=== PATIENT | male | born 1980 | race Caucasian/White ===

== ENCOUNTER 2017-09-10 13:18 | Day surgery (SDC) | payer OTHER ==
[~2017-09-10 13:18] MED LIST: DEXAMETHASONE 4 MG/ML 1 ML INJ; LIDOCAINE 2% (SDV) 5 ML INJ; ONDANSETRON 4 MG INJ
[2017-09-10] MEDS ORDERED: metroNIDAZOLE 500 MG/NS (PMX) 100 ML IVPB (14:00)
[2017-09-10] MEDS ORDERED: SOD CHLORIDE 0.9% 1,000 ML IV (14:00)
[2017-09-10] MEDS ORDERED: LACTATED RINGER'S 1,000 ML IV (14:00)
[2017-09-10] MEDS ORDERED: PROPOFOL 20 ML (15:12)
[2017-09-10] MEDS ORDERED: ROCURONIUM 50 MG INJ (15:14)
[2017-09-10] MEDS ORDERED: FENTAnyl 50 MCG/ML VIAL IV ×3 (15:30)
[2017-09-10] MEDS ORDERED: DIPHENHYDRAMINE 50 MG INJ IV (15:30)
[2017-09-10] MEDS ORDERED: hydrALAzine 20 MG INJ IV (15:30)
[2017-09-10] MEDS ORDERED: HYDROmorphONE (0.2 MG/ML) 10ML SYG IV ×2 (15:30)
[2017-09-10] MEDS ORDERED: OXYCODONE/ACETAMINOPHEN (5/325) TAB PO ×2 (15:30)
[2017-09-10] MEDS ORDERED: MEPERIDINE 25 MG INJ IV (15:30)
[2017-09-10] MEDS ORDERED: ALBUTEROL 0.083% (NEB) 2.5 MG/3 ML AMP HHN (15:30)
[2017-09-10] MEDS ORDERED: METOCLOPRAMIDE 10 MG INJ IV (15:30)
[2017-09-10] MEDS ORDERED: MIDAZOLAM 1 MG/ML 2 ML INJ IV (15:30)
[2017-09-10] MEDS ORDERED: LABETALOL HCL 20MG INJ IV (15:30)
[2017-09-10] MEDS ORDERED: EPHEDrine SULFATE 50 MG/5 ML SYG IV (15:30)
[2017-09-10] MEDS: LIDOCAINE 1% (MPF) 30 ML INJ (16:35)
[2017-09-10] MEDS: BUPIVACAINE 0.5%/EPI (SDV) 30 ML INJ INJ (16:35)
[2017-09-10] MEDS ORDERED: SUGAMMADEX SODIUM 200 MG/2 ML VIAL IV (16:38)
[2017-09-10] MEDS: ONDANSETRON 4 MG INJ IV (17:14)
[2017-09-10] MEDS: HYDROmorphONE (0.2 MG/ML) 10ML SYG IV (17:15)
[2017-09-10] MEDS: KETOROLAC 30 MG INJ IV (17:33)
== END 2017-09-10 18:47 | disposition home or self-care (01) ==
LOC: SDS 13:18
DX: K60.2 Anal fissure, unspecified (principal); E66.9 Obesity, unspecified; Z68.27 Body mass index [BMI] 27.0-27.9, adult
CPT/HCPCS: 46200